=== PATIENT | female | born 1980 | race Two or more races ===

== ENCOUNTER 2024-10-07 08:16 | Emergency (ER) | payer MEDICAID, SELFPAY ==
[2024-10-07 08:26] VITALS: BP 145/87; PULSE 81; RESP 19; TEMP 36.9; O2SAT 99; BMI 34.4
--- NOTE | 2024-10-07 08:31 | XR_ITS ---
Examination: CT brain head without contrast. 2-D sagittal coronal reconstructions Date and time of exam:October 07, 2024 0855 hours INDICATIONS: Syncope dizziness beginning this morning CTDI: vol (mGy):42.3 DLP: (mGycm):829 Technique: Multiple CT axial sections of the brain have been obtained, 5 mm slice thickness. Contrast has not been administered. 2-D sagittal, coronal reconstructions have been obtained Low dose protocols were performed. One or more of the following dose reduction techniques were used; automated exposure control, adjustment of the mA and/or KV according to patient size, use of iterative reconstruction technique. Findings: No significant ventricular enlargement. Intra-axial or extra-axial hemorrhage density is not seen. No mass effect or midline shift Basal cisterns are not remarkable. Fourth ventricle is midline. Cranial vault intact. Impression: Negative for acute hemorrhage, mass effect or midline shift If symptoms persist, consider brain MRI follow-up, stroke protocol
--- NOTE | 2024-10-07 08:31 | XR_ITS ---
Examination: PA chest single view TECHNIQUE: Upright PA chest single view Exam date and time: October 07, 2024 0840 hours INDICATIONS: Dizziness beginning yesterday FINDINGS: Normal heart size No aspiration pneumonia The osseous structures are intact IMPRESSION: No active disease
--- NOTE | 2024-10-07 08:32 | PD.EDRME ---
Rapid Medical Screening Exam RME Arrival date/time: 10/07/24 08:16 44-year-old female with a 2-day history of dizziness. I have greeted and performed a focused initial assessment of this patient. Initial appropriate labs ordered at this time. A comprehensive ED assessment and evaluation of the patient and analysis of all test and completion of medical decision making process will be conducted by additional ED provider. Chief Complaint: Dizziness Time Seen by Provider: 10/07/24 08:19 Vital signs: Vital Signs Temperature 98.4 F 10/07/24 08:26 Pulse Rate 81 10/07/24 08:26 Respiratory Rate 19 10/07/24 08:26 Blood Pressure 145/87 H 10/07/24 08:26 Pulse Oximetry (%) 99 10/07/24 08:26 Oxygen Delivery Method Room Air 10/07/24 08:26
[2024-10-07] MEDS: MECLIZINE HCL 25 MG TABLET PO (09:03)
--- NOTE | 2024-10-07 09:37 | PC.LAC ---
Patient from [facility] and taken to rm 1 with c/o dizziness since yesterday. Patient denies pain at this time, skin is warm dry and pink, patient states she took execedrin otc for headache yesterday, nothing this am. Patient denies PMH. chart up to be seen by er provider.
[2024-10-07 09:38] VITALS: BP 139/75; PULSE 73; RESP 20; TEMP 36.8; O2SAT 100
[2024-10-07 09:39] VITALS: PULSE 79
[2024-10-07 09:42] LABS: Basophils # (Auto) 0.1 Thou/mm3 (0.0-0.2); Basophils % (Auto) 1 % (0-2.5); Eosinophils # (Auto) 0.1 Thou/mm3 (0.0-0.5); Eosinophils % (Auto) 1 % (0-10); Hematocrit 35.9 % (36.0-46.0); Hemoglobin 11.6 g/dL (12.0-16.0); Immature Granulocytes % (Auto) 0 % (0-0); Immature Granulocytes Auto 0.02 Thou/mm3 (0.00-0.00); Lymphocytes # (Auto) 2.1 Thou/mm3 (1.0-4.8); Lymphocytes % (Auto) 25 % (10-50); Mean Corpuscular HGB Conc 32.3 g/dl (31.0-37.0); Mean Corpuscular Hemoglobin 25.3 pg (25.0-35.0); Mean Corpuscular Volume 78 fL (80-100); Monocytes # (Auto) 0.5 Thou/mm3 (0.0-0.8); Monocytes % (Auto) 6 % (0-12); Neutrophils # (Auto) 5.7 Thou/mm3 (1.8-7.7); Neutrophils % (Auto) 67 % (37-80); Nucleated Red Blood Cell % 0 /100 WBC (0); Platelet Count 352 Thou/mm3 (140-440); RDW Standard Deviation 47.7 fL (36.4-46.3); Red Blood Count 4.58 Miln/mm3 (4.00-5.20); White Blood Count 8.5 Thou/mm3 (3.6-11.0)
--- NOTE | 2024-10-07 09:45 | EDNOTE_ITS ---
ED Dizzyness RME/HPI General Chief Complaint: Dizziness Stated Complaint: DIZZY SINCE YESTERDAY AT 0800 Time Seen by Provider: 10/07/24 08:19 Arrival date/time: 10/07/24 08:16 RME / HPI RME / HPI Narrative: 10/07/24 08:16 44-year-old female with a 2-day history of dizziness. I have greeted and performed a focused initial assessment of this patient. Initial appropriate labs ordered at this time. A comprehensive ED assessment and evaluation of the patient and analysis of all test and completion of medical decision making process will be conducted by additional ED provider. DR. CLINT KWAN ED EVALUATION 44 year old female with history of migraines presents to the ED for evaluation of dizziness today. Patient describes dizziness as room spinning sensation and I feel drunk . Reportedly felt dizzy for the first time yesterday at 08:00 am however resolved on its own after 5 minutes. States she felt at her baseline all throughout the day until 10pm last night when the dizziness returned. During that time accompanied by nausea and vomiting x2. States he had trouble falling asleep secondary to dizziness and upon waking this morning the dizziness persisted. Denies any history of similar prior to onset yesterday. Denies fevers, chills, chest pain, cough, shortness of breath, abdominal pain, urinary symptoms, headache, or changes in gait. LMP was 8 days ago. Related Data Previous Rx's ?Medication ?Instructions ?Recorded meclizine 50 mg tablet (Antivert) 50 mg PO BID PRN dizziness #20 tabs 10/07/24 Allergies Allergy/AdvReac Type Severity Reaction Status Date / Time No Known Allergies Allergy Verified 10/07/24 08:19 Review of Systems Review of Systems Narrative Review of Systems: GEN: No fever, no chills, no weight loss EYES: No discharge, no visual changes, no pain HEENT: No ear pain, no congestion, no sore throat PULM: No shortness of breath, no cough, no congestion CV: No chest pain, no dyspnea on exertion, no palpitations GI: +nausea, +vomiting, no diarrhea, no pain, no constipation : No frequency, no urgency and no dysuria MUSC/SKEL No joint pain, no back pain SKIN: No rash PSYCH: No hallucinations, no depression HEME/LYMPH: No easy bleeding or bruising tendencies NEURO: No weakness, no headache, +dizziness Past Medical History Past Medical History CARDIAC: Negative Congestive Heart Failure RESPIRATORY: Negative Chronic Obstructive Pulmonary Disease (COPD) GENITOURINARY: Negative Renal Disease ENDOCRINE: Negative Diabetes Mellitus Type 1 or Diabetes Mellitus Type 2 Social History SMOKING STATUS: Never smoker ED Exam Narrative Physical exam: GENERAL APPEARANCE: Well hydrated, well nourished, in no acute distress. VITALS: All vitals were reviewed and the pulse ox is 100% on room air which is normal according to my interpretation. HEENT: Normocephalic, atramatic, EOMI, EACs are patent. There is no bulge or retraction. Throat without erythema or exudate. Moist oromucosa. No jaundice NECK: Supple, no JVD or bruits. CARDIOVASCULAR: Heart regular without S3-S4 or murmur. No rubs or gallops. LUNGS/CHEST: Clear to auscultation bilaterally. No rales, rhonchi, or wheezing. Normal inspection. ABDOMEN: Soft, nontender, with normal bowel sounds. No pulsatile masses. No rebound, rigidity, or guarding. No incarcerated hernia. Normal inspection and palpation. EXTREMITIES: Normal inspection and palpation. No edema, clubbing, or cyanosis. Intact CSM SKIN: Warm and dry without rashes. Normal inspection. MUSCULOSKELETAL: Normal inspection. No gross deformity, full ROM all extremities NEURO: Alert and oriented x3. Cranial nerves II through XII grossly intact. There are no other motor or sensory deficits noted. PSYCHIATRIC: Normal mood and affect. No psychosis. Course Quality Measures none Orders Category Date Time Status Bedside Blood Glucose NOW Care 10/07/24 08:31 Active Informatics Scientist STAT Care 10/07/24 08:31 Active EKG (ED ONLY) *Do not use* NOW Care 10/07/24 08:[address] head/brain wo con Stat Exams 10/07/24 08:31 Completed EKG (ED Only) Stat Exams 10/07/24 08:31 Ordered XR chest 1V portable Stat Exams 10/07/24 08:31 Completed CBC Stat Lab 10/07/24 09:27 Completed Comprehensive Metabolic Panel Stat Lab 10/07/24 09:27 Completed HCG Qualitative,Urine Stat Lab 10/07/24 10:13 Completed Prothrombin Time with INR Stat Lab 10/07/24 09:27 Completed Troponin I Stat Lab 10/07/24 09:27 Completed Urinalysis Stat Lab 10/07/24 10:13 Completed Meclizine HCl [Antivert] Med 10/07/24 08:31 Discontinued 25 mg PO X1 ONE Sodium Chloride 0.9% 1000 ml [Ns] 1,000 ml Med 10/07/24 09:52 Discontinued IV 999 mls/hr Vital Signs Vital signs: Vital Signs Temperature 98.4 F 10/07/24 08:26 Pulse Rate 81 10/07/24 08:26 Respiratory Rate 19 10/07/24 08:26 Blood Pressure 145/87 H 10/07/24 08:26 Pulse Oximetry (%) 99 10/07/24 08:26 Oxygen Delivery Method Room Air 10/07/24 08:26 Dizziness MDM Narrative MDM Narrative:: Emeli Hudson am scribing for and in the presence of Dr. Oswald. CBC is negative. CMP negative. Troponin negative. test negative. UA is negative. CT head was reviewed by and interpreted by me as follow: No bleed. No mass. No shifting. No swelling. Normal ventricle. Normal bones. Chest x-ray was reviewed by and interpreted by me as follow: Normal lungs. Normal heart. Normal mediastinum. Normal bones. In the emergency department the patient received an Antivert by mouth and also a liter of normal saline bolus. She did very well. Nurses saw her walk from the room to the restroom without any problem. So no neurological deficit. 2:16 PM, recheck: Alert awake oriented x 4 GCS of 15. No neurological deficit. Condition has improved a lot. is here for driving. Patient data External records reviewed:: [facility] previous records (Per EMR review, patient has no previous ED visits ) Clinical information provided by:: patient Social determinants that could affect healthcare access:: none Patient has the following chronic illnesses:: Migraines How is presenting disease/condition affected by chronic disease/condition?: uneffected by Evaluation data The following diagnostics were reviewed and interpreted by me:: lab results and radiology exam(s) Lab and/or radiology exams considered but not ordered:: None Interpretation Summary: Ordering Physician: Komal Hudson Date of Service: 10/07/24 Procedure(s): XR chest 1V portable Accession Number(s): [id number] cc: Ross Traylor MD; NO PRIMARY/FAMILY,PHYSICIAN; Komal Hudson [facility]~ Examination: PA chest single view TECHNIQUE: Upright PA chest single view Exam date and time: October 07, 2024 0840 hours INDICATIONS: Dizziness beginning yesterday FINDINGS: Normal heart size No aspiration pneumonia The osseous structures are intact IMPRESSION: No active disease Dictated By: Ross Traylor MD Signed By: <Electronically signed by Ross Traylor MD in OV> 10/07/24 0942 ===== Ordering Physician: Komal HudsonP Date of Service: 10/07/24 Procedure(s): CT head/brain wo [facility] Accession Number(s): [id number] cc: Ross Traylor MD; NO PRIMARY/FAMILY,PHYSICIAN; Komal Hudson [facility]~ Examination: CT brain head without contrast. 2-D sagittal coronal reconstructions Date and time of exam:October 07, 2024 0855 hours INDICATIONS: Syncope dizziness beginning this morning CTDI: vol (mGy):42.3 DLP: (mGycm):829 Technique: Multiple CT axial sections of the brain have been obtained, 5 mm slice thickness. Contrast has not been administered. 2-D sagittal, coronal reconstructions have been obtained Low dose protocols were performed. One or more of the following dose reduction techniques were used; automated exposure control, adjustment of the mA and/or KV according to patient size, use of iterative reconstruction technique. Findings: No significant ventricular enlargement. Intra-axial or extra-axial hemorrhage density is not seen. No mass effect or midline shift Basal cisterns are not remarkable. Fourth ventricle is midline. Cranial vault intact. Impression: Negative for acute hemorrhage, mass effect or midline shift If symptoms persist, consider brain MRI follow-up, stroke protocol Dictated By: Ross Traylor MD Signed By: <Electronically signed by Ross Traylor MD in OV> 10/07/24 0940 Medications / Prescriptions Medications or Prescriptions considered but not ordered:: None Medication administrations:: Medication Administration History Discontinued Medications Sodium Chloride (Ns) 1,000 mls @ 999 mls/hr IV .Q1H1M ONE Stop: 10/07/24 10:52 Last Infusion: 10/07/24 11:30 Dose: Infused Documented By: Admin: 10/07/24 10:19 Dose: 999 mls/hr Documented By: PARRISH Meclizine HCl (Meclizine Hcl 25 Mg Tablet) 25 mg PO X1 ONE Stop: 10/07/24 08:32 Last Admin: 10/07/24 09:03 Dose: 25 mg Documented By: REYNALDO See above Consultations Consultation(s) initiated? (list below): No Diagnosis Dizziness Differential Diagnosis: adverse reaction to drug, benign paroxysmal positional vertigo, orthostatic hypotension, cerebrovascular accident, transient cerebral ischemia and other (Vertigo ) Most likely diagnosis given after review of the tests above:: Vertigo Admission Indicated Admission indicated?: not indicated Admission Request Was there a request for admission?: No Disposition Plan Disposition Plan: Discharge Discharge Attestation Discharge Attestation: The patient and all family members were given an opportunity to ask questions and understood the discharge instructions. Discharge instructions specifically effects, indications for sooner follow up or return to the emergency department, and the expected course of current diagnosis. Patient condition: Stable Discharge Plan Plan Patient Disposition: HOME (Self Care) Disposition Comment: Stable to go home Prescriptions/Referrals Prescriptions/Med Rec: New meclizine [Antivert] 50 mg tablet 50 mg PO BID PRN (Reason: dizziness) Qty: 20 0RF Referrals: No Primary/Family,Physician [Primary Care Provider] - In 1 week Problem List Clinical Impression: Benign paroxysmal positional vertigo Patient/Caregiver Discharge Instructions Education Materials: ED BPV Vertigo Additional Instructions: Medication as prescribed. Follow-up with your medical doctor in 3 days. Avoid [address] or diving or muna until vertigo is improved. Return the nearest emergency department if any problem. Print Language: Romansh Stand Alone Forms: Luciana Award Info., Patient Portal Info Letter
[2024-10-07 09:55] LABS: Prothrombin Time 11.3 Seconds (9.0-12.2)
[2024-10-07 10:07] LABS: Alanine Aminotransferase 12 U/L (10-49); Albumin, Serum 4.4 gm/dL (3.5-5.0); Albumin/Globulin Ratio 1.5 (1.2-2.2); Alkaline Phosphatase 58 U/L (46-116); Anion Gap 8 (7-16); Aspartate Amino Transferase 15 U/L (0-34); BUN/Creatinine Ratio 15 Ratio (12-20); Bilirubin,Total 0.6 mg/dL (0.3-1.2); Blood Urea Nitrogen 9 mg/dL (9-23); Calcium 9.7 mg/dL (8.3-10.6); Calcium (Corrected) 9.7 mg/dL (8.5-10.1); Carbon Dioxide 27.6 mMol/L (20.0-31.0); Chloride 106 mMol/L (98-107); Creatinine (Component) 0.6 mg/dL (0.6-1.3); Estimated Creatinine Clearance 118.9 mL/min (>60); Globulin 2.9 gm/dL (2.3-3.5); Glucose 119 mg/dL (74-106); Osmolality,Calculated 282 (275-295); Sodium 142 mMol/L (136-145); Total Protein 7.3 gm/dL (5.7-8.2); Troponin I < 0.002 ng/mL (0.0-0.045); eGFR > 60 See Note
[2024-10-07] MEDS: SODIUM CHLORIDE 0.9% 1000 ML 1,000 ML 999 ML IV (10:19)
[2024-10-07 10:20] LABS: Collection Type, Urine Clean Catch
[2024-10-07 10:24] LABS: HCG Qualitative,Urine Negative
[2024-10-07 10:49] LABS: Bilirubin,Urine Negative (Negative); Blood,Urine Negative (Negative); Clarity,Urine Turbid (Clear/Hazy); Color,Urine Lt-Yellow (Lt Yel-Yel); Glucose, Urine Negative (Negative); Ketones,Urine Negative (Negative); Leukocyte Esterase,Urine Negative (Negative); Nitrite,Urine Negative (Negative); PH,Urine 6.5 (5.0-7.0); Protein,Urine Negative (Neg - Trace); RBC,Urine 2 /hpf (0-3); Specific Gravity,Urine 1.012 (1.001-1.035); Squamous Epithelial Cell,Urine 15 /hpf (0-5); Urobilinogen,Urine Negative mg/dL (0.0-1.0); WBC,Urine 2 /hpf (0-5)
[2024-10-07 12:47] VITALS: BP 128/67; PULSE 75; RESP 18; TEMP 36.9; O2SAT 98
--- NOTE | 2024-10-07 12:52 | PC.NURSE ---
Patient lying in gurney quietly, patient states she does feel better, not as dizzy after administration of medication and ivf, however, patient states she still feels dizzy like the room is spinning when closing her eyes, chart up for review, will notify provider, of patients status, call light within reach.
[2024-10-07 14:31] VITALS: BP 128/81; PULSE 79; RESP 16; TEMP 37; O2SAT 99
== END 2024-10-07 14:39 | disposition home or self-care (01) ==
PROVIDERS: Nurse Practitioner Primary Care; Emergency Provider Emergency Medicine
DX: H81.10 Benign paroxysmal vertigo, unspecified ear (principal); R55 Syncope and collapse; R94.31 Abnormal electrocardiogram [ECG] [EKG]
CPT/HCPCS: 36415; 70450; 71045; 80053; 81001; 81025; 84484; 85025; 85610; 93005; 96360; 99284; J7030; A9270

== ENCOUNTER → 2025-02-06 | Outpatient (BNVA) | payer MEDICAID, SELFPAY | END | disposition home or self-care (01) | PROVIDERS: PCP Nurse Practitioner Primary Care; Referring Provider Nurse Practitioner Primary Care; Visit Provider Nurse Practitioner Primary Care | DX: Z76.89 Persons encountering health services in other specified circumstances (principal); E66.9 Obesity, unspecified; Z68.35 Body mass index [BMI] 35.0-35.9, adult | CPT/HCPCS: 99203 ==

== ENCOUNTER → 2025-02-20 | Outpatient (BNVA) | payer MEDICAID, SELFPAY | END | disposition home or self-care (01) | PROVIDERS: PCP Nurse Practitioner Primary Care; Referring Provider Nurse Practitioner Primary Care; Visit Provider Nurse Practitioner Primary Care | DX: Z00.01 Encounter for general adult medical examination with abnormal findings (principal); E66.9 Obesity, unspecified; Z68.35 Body mass index [BMI] 35.0-35.9, adult; Z13.220 Encounter for screening for lipoid disorders; Z13.1 Encounter for screening for diabetes mellitus; Z13.21 Encounter for screening for nutritional disorder; Z12.11 Encounter for screening for malignant neoplasm of colon; Z13.31 Encounter for screening for depression | CPT/HCPCS: 99173; 99215 ==

== ENCOUNTER → 2025-02-26 | Outpatient (BNVA) | payer MEDICAID, SELFPAY | END | disposition home or self-care (01) | PROVIDERS: PCP Nurse Practitioner Primary Care; Referring Provider Nurse Practitioner Primary Care; Visit Provider Nurse Practitioner Primary Care | DX: E55.9 Vitamin D deficiency, unspecified (principal); Z71.2 Person consulting for explanation of examination or test findings; R73.03 Prediabetes | CPT/HCPCS: 99212; G0463 ==

== ENCOUNTER → 2025-03-11 | Outpatient (BNVA) | payer MEDICAID, SELFPAY | END | disposition home or self-care (01) | PROVIDERS: PCP Nurse Practitioner Family; Referring Provider Nurse Practitioner Family; Visit Provider Nurse Practitioner Family | DX: Z01.419 Encounter for gynecological examination (general) (routine) without abnormal findings (principal); Z12.31 Encounter for screening mammogram for malignant neoplasm of breast | CPT/HCPCS: 81001; 99215; Q0091 ==

== ENCOUNTER → 2025-03-25 | Outpatient (BNVA) | payer MEDICAID, SELFPAY | END | disposition home or self-care (01) | PROVIDERS: PCP Nurse Practitioner Primary Care; Referring Provider Nurse Practitioner Primary Care; Visit Provider Nurse Practitioner Primary Care | DX: Z71.2 Person consulting for explanation of examination or test findings (principal) | CPT/HCPCS: 99212; G0463 ==

== ENCOUNTER → 2025-05-23 | Outpatient (BNVA) | payer MEDICAID, SELFPAY | END | disposition home or self-care (01) | PROVIDERS: PCP Nurse Practitioner Primary Care; Referring Provider Nurse Practitioner Primary Care; Visit Provider Nurse Practitioner Primary Care | DX: E55.9 Vitamin D deficiency, unspecified (principal); R73.03 Prediabetes; J40 Bronchitis, not specified as acute or chronic | CPT/HCPCS: 99214 ==

== ENCOUNTER → 2025-06-13 | Outpatient (BNVA) | payer MEDICAID, SELFPAY | END | disposition home or self-care (01) | PROVIDERS: Family Provider Nurse Practitioner Primary Care; PCP Nurse Practitioner Primary Care; Referring Provider Nurse Practitioner Primary Care; Visit Provider Nurse Practitioner Primary Care | DX: E55.9 Vitamin D deficiency, unspecified (principal); R73.03 Prediabetes | CPT/HCPCS: 99212; G0463 ==